=== PATIENT | male | born 1940 | race Caucasian/White ===

== ENCOUNTER → 2017-05-22 | Outpatient (CLI) | payer MEDICARE, OTHER ==
[~2017-05-22] MED LIST: ALFU10TA2 PO; ASPI1TAB57 PO; ASPI81 PO; BENA20TA PO; BENA5 PO; CELE400C PO; CYCL-36 PO; FAMO20TA2 PO; FEXO180 PO; HYDR-3366 PO; HYDR12.57 PO; MAPA500C PO; MELA1TAB18 PO; NEXI20CA PO; SIMV40TA PO; SYSTSOL EACH EYE; TAMS0.4C67 PO; XANA1TAB6 PO; ZOCO40TA PO
[2017-05-22 12:24] LABS: BILIRUBIN, URINE NEG (NEG); BLOOD, URINE NEG (NEG); GLUCOSE,URINE NEG (NEG); KETONE, URINE NEG (NEG); NITRITE,URINE NEG (NEG); PH, URINE 5.5 (5.0-8.5); URINE COLOR LIGHT-YELLOW (YELLW/STRAW); URINE LEUKOCYTE ESTERASE NEG (NEG)
[2017-05-22 12:25] LABS: AUTOMATED NEUTROPHIL # 4.1 TH/MM3 (1.8-7.7); BASOPHIL # 0.1 TH/MM3 (0-0.2); BASOPHIL % 0.8 % (0.0-2.0); EOSINOPHIL # 0.2 TH/MM3 (0-0.4); EOSINOPHIL % 2.4 % (0.0-4.0); HEMATOCRIT 41.3 % (39.0-51.0); HEMOGLOBIN 14.1 GM/DL (13.0-17.0); LYMPH % 26.4 % (9.0-44.0); LYMPHOCYTE # 1.8 TH/MM3 (1.0-4.8); MEAN CELL VOLUME 90.7 FL (80.0-100.0); MEAN CORPUSCULAR HGB CONC 34.2 % (32.0-36.0); MEAN PLATELET VOLUME 7.8 FL (7.0-11.0); MONO % 11.5 % (0.0-8.0); MONOCYTE # 0.8 TH/MM3 (0-0.9); NEUT % 58.9 % (16.0-70.0); PLATELET COUNT 262 TH/MM3 (150-450); RED BLOOD COUNT 4.55 MIL/MM3 (4.50-5.90); RED CELL DISTRIBUTION WIDTH 14.3 % (11.6-17.2); WHITE BLOOD COUNT 6.9 TH/MM3 (4.0-11.0)
[2017-05-22 12:38] LABS: PROTHROMBIN TIME - PATIENT 10.4 SEC (9.8-11.6)
[2017-05-22 12:47] LABS: ALBUMIN 3.9 GM/DL (3.4-5.0); ALT (GPT) 21 U/L (12-78); AST (GOT) 16 U/L (15-37); BICARBONATE 29.7 MEQ/L (21.0-32.0); BLOOD UREA NITROGEN 17 MG/DL (7-18); CALCIUM 8.6 MG/DL (8.5-10.1); CHLORIDE 107 MEQ/L (98-107); CREATININE 0.97 MG/DL (0.60-1.30); GLOMERULAR FILTRATION RATE 75 ML/MIN (>89); GLUCOSE,FASTING 86 MG/DL (74-99); SODIUM (NA) 141 MEQ/L (136-145)
[2017-05-22 12:49] LABS: ALKALINE PHOSPHATASE 77 U/L (45-117); TOTAL BILIRUBIN ADULT 0.4 MG/DL (0.2-1.0); TOTAL PROTEIN 7.4 GM/DL (6.4-8.2)
--- NOTE | 2017-05-22 13:26 | RADRPT ---
EXAM DATE/TIME: 05/22/2017 13:02 [facility] COMPARISON: No previous studies available for comparison. INDICATIONS : Evaluate for pnemonia, pneumothorax, or communicable disease. Pre op for laminectomy 05/25/2017. MEDICAL HISTORY : Hypertension. SURGICAL HISTORY : None. ENCOUNTER: Initial ACUITY: 1 day PAIN SCORE: 0/10 LOCATION: Bilateral cranial FINDINGS: Frontal and lateral views of the chest and demonstrate a normal-sized cardiac silhouette. No pleural effusion, airspace consolidation, or pneumothorax is present. There are calcified left hilar lymph no minh and there are is a calcified granuloma in the peripheral left midlung zone. The bones and soft ti ssues demonstrate no acute finding. There are degenerative changes of the thoracic spine and glenohum eral joints. CONCLUSION: No acute cardiopulmonary abnormality is identified. There are findings indicative of old granulomatou s infection. Shemar Lobato MD on May 22, 2017 at 13:16 Board Certified Radiologist. This report was verified electronically.
--- NOTE | 2017-05-23 21:41 | EKG ---
Date Performed: 05/22/2017 Time Performed: 12:13:32 PTAGE: 76 years EKG: Sinus rhythm MODERATE ST DEPRESSION ABNORMAL ECG NO PREVIOUS TRACING DOCTOR: Maycol Estrada Interpretating Date/Time 05/23/2017 21:38:36
== END ==
LOC: CPRE 11:38
PROVIDERS: ATTEND Neurological Surgery
DX: Z01.812 Encounter for preprocedural laboratory examination (principal); Z01.811 Encounter for preprocedural respiratory examination; Z01.810 Encounter for preprocedural cardiovascular examination; M48.062 Spinal stenosis, lumbar region with neurogenic claudication; R94.31 Abnormal electrocardiogram [ECG] [EKG]
CPT/HCPCS: 36415; 71046; 80053; 81001; 85025; 85610; 85730; 87640; 87641; 93005

== ENCOUNTER 2017-05-25 05:58 | Day surgery (SDC) | payer MEDICARE, OTHER ==
[~2017-05-25] VITALS: Ht 175.3 cm; Wt 68.5 kg
[~2017-05-25 05:58] MED LIST changes: -ASPI81 PO; -BENA5 PO; -CELE400C PO; -CYCL-36 PO; -FEXO180 PO; -HYDR-3366 PO; -NEXI20CA PO; -TAMS0.4C67 PO; -XANA1TAB6 PO; -ZOCO40TA PO
[2017-05-25] MEDS ORDERED: SODIUM CHLORID 0.9% 500 ML IV PRN (06:30)
[2017-05-25] MEDS ORDERED: LACTATED RINGER'S 1000 ML IV PRN (06:30)
[2017-05-25] MEDS ORDERED: VANCOMYCIN 1 GM/200 ML PREMIX ON-CALL IV SCH (06:30)
[2017-05-25] MEDS ORDERED: CHLORHEXIDINE GLUCONATE 2 % 1 PACK (2 CLOTHS) TOPICAL PRN (06:30)
[2017-05-25] MEDS ORDERED: POVIDONE IODINE 5% (ANTISEPSIS KIT) 4 APPLICATIONS EACH NARE PRN (06:30)
[2017-05-25] MEDS ORDERED: SODIUM CHLOR 0.9% 1000 ML INJ 1,000 ML IV SCH (06:30)
[2017-05-25] MEDS ORDERED: METOPROLOL TARTRATE 25 MG TAB PO PRN (06:30)
[2017-05-25] MEDS ORDERED: GELFOAM SIZE 100 ONE (06:47)
[2017-05-25] MEDS ORDERED: VANCOMYCIN HCL 1000 MG VIAL ONE (06:47)
[2017-05-25] MEDS ORDERED: THROMBIN (TOPICAL) 5,000 UNIT VIAL ONE (06:47)
[2017-05-25] MEDS ORDERED: methylPREDNISolone ACETATE 40 MG/ML VIAL ONE (06:47)
[2017-05-25] MEDS ORDERED: MIDAZOLAM HCL 2 MG/2 ML VIAL ONE (07:42)
[2017-05-25] MEDS ORDERED: ACETAMINOPHEN 1000 MG/100 ML 100 ML IV ONE (07:42)
[2017-05-25] MEDS ORDERED: FAMOTIDINE 20 MG/2 ML VIAL ONE (07:42)
[2017-05-25] MEDS ORDERED: BUPIVACAINE/EPINEPHRINE 0.25% 50 ML VIAL ONE (08:04)
[2017-05-25] MEDS ORDERED: DO NOT ADM ANY ANTICOAGULANT DRUGS PRN (11:23)
--- NOTE | 2017-05-25 11:33 | PD.OP ---
Operative Report Date of Surgery: May 25, 2017 Preoperative Diagnosis: Lumbar L3-4 spinal stenosis from facet and ligamentum flavum hypertrophy with associated back pain and neurogenic claudication Postoperative Diagnosis: Same Procedure: Lumbar L3-4 decompressive laminectomies with medial facetectomies and foraminotomies; microsurgical technique Anesthesia: General endotracheal by Mary Ann sanchez Surgeon: Fabian Call MD Software Security Architect(s): Carola Lopez Operation and Findings: Following administration of general endotracheal anesthesia, patient received vancomycin 1 g intravenously. Sequential compression devices were placed for DVT prophylaxis. He was then turned in prone position on Yuan frame and the Suleman table and all pressure points adequately padded. The lumbar region was then shaved and prepped with a Betadine and ChloraPrep. Sterile draping undertaken with Ioban. Midline incision overlying the L3-L4 level was then made after infiltrating the skin with 0.5% Marcaine with epinephrine solution. The skin incision was made extending down through the fascia and then using the subperiosteal plane on the left side the muscular attachments to the spinous process and lamina were detached. Intraoperative fluoroscopy was used for level confirmation and further dissection undertaken using microtechnique with microscope magnification. The inferior portion of the L3 and portion of the L4 lamina was then drilled out and the underlying ligamentum flavum also removed. There was significant facet arthropathy and hypertrophy ligamentum flavum noted and the medial portion of facet was also resected and the lateral recess decompressed. Epidural venous stasis which he with the bipolar cautery along with Gelfoam and thrombin and bone wax used at the laminotomy edges for hemostasis. The thecal sac was then gently retracted with a nerve root retractor and through the left sided laminotomies of the right hypertrophied ligamentum flavum and medial portion of facet was resected for circumferential bilateral spinal canal and foramen decompression. The area was then copiously irrigated with vancomycin solution. The retractors removed and the muscle fascia proximal using 2-0 Vicryl interrupted stitches. 3-0 Vicryl subcuticular stitches were also placed in an interrupted fashion and planned skin closure was with Mastisol and Steri-Strips. A sterile dressing was then applied and the patient then turned in the supine position and extubated and taken to recovery room in stable condition. There were no intraoperative complications and all sponge and needle count was correct at the end of the procedure. Estimated blood loss about 150 cc. Fabian Call MD May 25, 2017 11:33
[2017-05-25] MEDS ORDERED: *morphine SULFATE 4 MG/ML PERIprocedure ONLY ONE (11:35)
[2017-05-25] MEDS ORDERED: HYDR-3366 PO (11:36)
[2017-05-25] MEDS ORDERED: ACETAMINOPHEN/HYDROcodone 325 MG/10 MG TAB PO PRN (11:45)
[2017-05-25] MEDS ORDERED: NEOSTIGMINE 5 MG/5 ML SYRINGE IV PUSH ONE (12:00)
[2017-05-25] MEDS ORDERED: LACTATED RINGER'S 1000 ML INJ 1,000 ML IV ONE (12:00)
[2017-05-25] MEDS ORDERED: ONDANSETRON HCL 4 MG/2 ML VIAL IV ONE (12:00)
[2017-05-25] MEDS ORDERED: GLYCOPYRROLATE 1 MG/5 ML SYRINGE IV PUSH ONE (12:00)
[2017-05-25] MEDS ORDERED: ePHEDrine/NS 25 MG/5 ML SYRINGE IV ONE (12:00)
[2017-05-25] MEDS ORDERED: PROPOFOL 200 MG/20 ML AMP IV ONE (12:00)
[2017-05-25] MEDS ORDERED: SODIUM CHLORIDE 0.9% 10 ML VIAL IV ONE (12:00)
[2017-05-25] MEDS ORDERED: LIDOCAINE HCL 1% PF 5 ML SYRINGE OTHER ONE (12:00)
[2017-05-25] MEDS ORDERED: DEXAMETHASONE SOD PHOS 4 MG/ML VIAL IV ONE (12:00)
[2017-05-25] MEDS ORDERED: PHENYLEPH/NS 1000 MCG/10 ML SYR IV ONE (12:00)
[2017-05-25] MEDS ORDERED: ROCURONIUM INJ 50 MG/5 ML SYRINGE IV PUSH ONE (12:00)
--- NOTE | 2017-05-25 12:16 | RADRPT ---
EXAM DATE/TIME: 05/25/2017 08:59 [facility] COMPARISON: No previous studies available for comparison. INDICATIONS : L3-L4 lumbar laminectomy. Level localization. MEDICAL HISTORY : None. SURGICAL HISTORY : None. ENCOUNTER: Initial ACUITY: 1 day PAIN SCORE: Non-responsive. LOCATION: Lumbar spine. FINDINGS: Surgical instruments are noted posteriorly at the L3-4 level. CONCLUSION: Surgical absence noted posteriorly at L3-4 level. Talat Simpson MD on May 25, 2017 at 12:12 Board Certified Radiologist. This report was verified electronically.
[2017-05-25 13:04] VITALS: BP 108/58; PULSE 75; RESP 16; TEMP 97.6; O2SAT 97
== END 2017-05-25 13:15 | disposition home or self-care (01) ==
LOC: HSDC 05:58 → UNDOADMIN 05:58 → HSDI 05:58 → EDSTATUS 08:30 → HSDC 13:15 → UNDODISIN 13:15
PROVIDERS: ATTEND Neurological Surgery
DX: M48.062 Spinal stenosis, lumbar region with neurogenic claudication (principal); M51.16 Intervertebral disc disorders with radiculopathy, lumbar region; M54.2 Cervicalgia; M54.5 Low back pain; G89.29 Other chronic pain; I10 Essential (primary) hypertension; Z79.82 Long term (current) use of aspirin
CPT/HCPCS: 00630; 63047; 72020; 76000; J0131; J1030; J1100; J2250; J2270; J2370; J2405; J2710; J3010; J3370; J7120

== ENCOUNTER 2018-01-22 06:05 | Observation (INO) ==
[2018-01-22] MEDS ORDERED: Chlorhexidine Gluconate 2% 1 Pack (2 Cloths) TOPICAL ONE (06:33)
[2018-01-22] MEDS ORDERED: Metoprolol Tartrate 25 MG Tablet PO ONE (06:33)
[2018-01-22] MEDS ORDERED: Lidocaine 1%/Epinephrine 1:100,000 Inj 50 ML Vial ONE ×2 (06:59→07:01)
[2018-01-22] MEDS ORDERED: Ampicillin/Sulbactam Inj 3 GM in Sodium Chloride 0.9% Inj 100 ML IV.SIG SCH (07:00)
[2018-01-22] MEDS ORDERED: Sodium Chlor 0.9% Inj 500 ML IV.SIG SCH (07:00)
[2018-01-22] MEDS ORDERED: fentaNYL Citrate Inj 250 MCG/5 ML Ampul ONE (07:12)
[2018-01-22] MEDS ORDERED: Phenylephrine/NS 1000 MCG/10ML Syringe IV.PUSH ONE (08:38)
[2018-01-22] MEDS ORDERED: Neostigmine Inj 5 MG/5 ML Syringe IV.PUSH ONE (08:38)
--- NOTE | 2018-01-22 10:41 | MP ---
cc: Fernandez Sheehan MD DATE OF OPERATION: 01/22/2018 SURGEON: Fernandez Sheehan MD PREOPERATIVE DIAGNOSES: 1. Nasal airway obstruction. 2. Nasal septal deviation. 3. Hypertrophy of inferior turbinates. POSTOPERATIVE DIAGNOSES: 1. Nasal airway obstruction. 2. Nasal septal deviation. 3. Hypertrophy of inferior turbinates. OPERATION PERFORMED: 1. Septoplasty. 2. Bilateral submucosal resection of inferior turbinates. INDICATIONS: Documented in the history and physical. DESCRIPTION OF THE PROCEDURE: The patient was taken to OR 2 and placed in the supine position. Following induction of general anesthesia and intubation, the nose was packed bilaterally with cotton pledgets saturated in 0.05% oxymetazoline, and the septal mucosa and inferior turbinates were injected with a total of 8 mL of 1% Xylocaine with epinephrine 1:100,000. He was then prepped and draped for surgery. The packing was removed and a hemitransfixion incision was made in the left nasal vestibule. Through this incision, the mucosa of the nasal septum was elevated bilaterally as far as the sphenoid rostrum, followed by removal of a 2.0 x 2.5 cm area of the quadrangular cartilage. When this was completed, the bony septum and the maxillary crest were removed using George-Nathalia forceps. The incision was closed with a running suture of 4-0 chromic and the mucosal layers of septum were approximated to each other with a quilting stitch of 4-0 plain gut. The inferior turbinates were then fractured out medially and stab incisions were made along their inferior surfaces. Through these incisions, the submucosal soft tissue was reduced using a curette and preserving the conchal bone. The incisions were then cauterized using the suction Bovie at 45 galindo. The remnants of the inferior turbinates were then relateralized to the lateral nasal wall. The nose was packed with Merocel tampons coated in mupirocin ointment and the procedure was terminated. The patient was reversed from anesthesia and taken to recovery in good condition. There were no complications. Blood loss was 100 mL. MD OFELIA Raines/jenifer , 09:47 AM , 09:53 AM
[2018-01-22] MEDS: Ampicillin/Sulbactam Inj 1,500 MG IV.SIG SCH ×4 (16:55→23:22)
[2018-01-22 20:40] VITALS: RESP 18; TEMP 97.4
[2018-01-23 00:35] VITALS: BP 147/68; PULSE 74; O2SAT 99
[2018-01-23] MEDS: Ampicillin/Sulbactam Inj 1,500 MG IV.SIG SCH ×2 (08:21)
[2018-01-23] MEDS ORDERED: Gabapentin 300 MG Capsule PO SCH (09:00)
[2018-01-23] MEDS ORDERED: hydroCHLOROthiazide 25 MG Tablet PO SCH (09:00)
[2018-01-23] MEDS ORDERED: Lisinopril 20 MG Tablet PO SCH (09:00)
== END 2018-01-23 08:43 | disposition home or self-care (01) ==
LOC: PH3 06:05 → PHSDC 06:05
PROVIDERS: ADMIT Otolaryngology; ATTEND Otolaryngology